=== PATIENT | female | born 1985 | race Caucasian/White ===

== ENCOUNTER 2017-07-25 00:58 | Emergency (ER) | payer BC ==
[~2017-07-25] VITALS: Ht 165.1 cm; Wt 60.8 kg
[2017-07-25 01:19] VITALS: BP 130/92
--- NOTE | 2017-07-25 01:36 | NUR ---
marco cabral at bedside to jerry paul.
== END 2017-07-25 01:51 | disposition home or self-care (01) ==
LOC: ER 01:01
DX: F41.9 Anxiety disorder, unspecified (principal); F32.9 Major depressive disorder, single episode, unspecified; R07.89 Other chest pain; Z88.5 Allergy status to narcotic agent
CPT/HCPCS: A4606; Z7610